=== PATIENT | male | born 1965 | race Caucasian/White ===

== ENCOUNTER 2017-06-21 09:18 | Outpatient (CLI) | payer OTHER ==
[2017-06-21 10:49] LABS: Hematocrit 42.1 % (42.0-52.0); Red Blood Cell (RBC) Count 4.67 mill/uL (4.70-6.10); White Blood Cell (WBC) Count 11.5 thou/uL (4.8-10.8)
[2017-06-21 10:55] LABS: Prothrombin Time 12.9 SEC (12.0-14.7)
[2017-06-21 10:58] LABS: PTT 20.6 SEC (22.9-36.1)
[2017-06-21 11:19] LABS: ALT (SGPT) 49 U/L (8-55); AST (SGOT) 19 U/L (5-34); Alkaline Phosphatase 85 U/L (40-150); Anion Gap 17 mmol/L (10-20); BUN (Urea Nitrogen) 27 mg/dL (8.9-20.6); Bilirubin, Total 0.4 mg/dL (0.2-1.2); Calc. Creatinine Clearance 0 mL/min (70-130); Calcium 9.4 mg/dL (7.8-10.44); Carbon Dioxide 18 mmol/L (22-29); Chloride 107 mmol/L (98-107); Cholesterol 128 mg/dl (< 200 Desired); Estimated GFR-MDRD 34; Globulin 2.5 g/dL (2.4-3.5); LDL Cholesterol, Calculated 70 mg/dL; Protein, Total 6.8 g/dL (6.0-8.3)
--- NOTE | 2017-06-22 06:18 | EKG ---
Test Reason : PREOP Blood Pressure : / mmHG Vent. Rate : 077 BPM Atrial Rate : 077 BPM P-R Int : 186 ms QRS Dur : 108 ms QT Int : 354 ms P-R-T Axes : 044 029 003 degrees QTc Int : 400 ms Normal sinus rhythm Nonspecific T wave abnormality Abnormal ECG When compared with ECG of 22-AUG-2012 12:56, Borderline criteria for Inferior infarct are no longer Present T wave inversion no longer evident in Lateral leads Confirmed by VIRIDIANA CORONEL ([id number]) on 06/22/2017 6:18:02 AM Referred By: JAYESH Confirmed By:VIRIDIANA CORONEL
== END 2017-06-21 09:19 | disposition home or self-care (01) ==
LOC: LABBT 09:18
PROVIDERS: ATTEND Internal Medicine Cardiovascular Disease
DX: Z01.818 Encounter for other preprocedural examination (principal); R94.30 Abnormal result of cardiovascular function study, unspecified
CPT/HCPCS: 80053; 80061; 85027; 85610; 85730; 93005; 93010

== ENCOUNTER → 2017-06-26 | Day surgery (SDC) | payer OTHER ==
[2017-06-21 09:32] VITALS: BMI 34.7
[~2017-06-26] MED LIST: Heparin 10,000 UNITS/1 ML VIAL ONE; Iopamidol 370 76% 100 ML VIAL ONE; Metoprolol Tartrate 5 MG/5 ML VIAL ONE; Nitroglycerin 100MG/250ML BOT 250 ML ONE
--- NOTE | 2017-06-26 08:24 | DIS ---
DATE OF PROCEDURE: 06/26/2017 This is a 51-year-old patient with a history of known coronary artery disease. He is status post an gioplasty and stent placement x4, who presented for evaluation. The patient recently underwent stre ss testing and was found to have an abnormal stress test and was advised to undergo repeat cardiac c atheterization. He was taken to the cardiac catheterization lab today. His other diagnoses include diabetes, hypertension, hypercholesterolemia, bipolar disorder, hypothyr oidism, gastroesophageal reflux disease, chronic kidney disease. DISCHARGE DIAGNOSES: Diabetes, hypertension, hypercholesterolemia, bipolar disorder, hypothyroidism , gastroesophageal reflux disease, chronic kidney disease. PROCEDURES IN THE HOSPITAL: Cardiac catheterization, left ventriculogram, and coronary arteriograph y. Total contrast was approximately 40 mL. DISCHARGE MEDICATIONS: Aspirin 81 mg a day, Lipitor 20 mg daily, Cetirizine HCL 10 mg daily, Bentyl 20 mg 4 times a day, Depakote 1000 mg tablets. He has 500 mg tablets, he takes 1000 mg a day, diva lproex sodium 250 mg tablets once a day. He also takes 1500 mg at night, vitamin D2, Nexium 40 mg a day, Zetia 10 mg a day, felodipine 40 mg a day, hydroxyzine 25 mg q.p.m., insulin 40 units subcu wi th meals, levothyroxine 88 mcg daily, metoprolol 25 mg daily. He also takes NPH insulin as needed 4 0 units b.i.d., Benicar 20 mg daily, Flomax 0.4 mg daily, and testosterone 200 mcg every 2 weeks. FOLLOWUP: His follow up will be with me in the next 4-6 weeks in the office. He will continue his other medications. HOSPITAL COURSE: He underwent a cardiac catheterization today after having an abnormal stress test and was advised to undergo the cardiac catheterization for evaluation of his previously placed stent s and to rule out evidence of progression of coronary disease. He was taken to the lab where he und erwent the procedure today and the findings were as noted in the catheterization report. He did hav e some diffuse luminal irregularities. He had a stent in the distal left anterior descending artery which remained patent without in-stent restenosis. There was a 30% stenosis proximal to the stent, but was not flow limiting. The left circumflex and first obtuse marginal branch had a stent also w hich was patent and again 20-30% proximal stenosis just proximal to the stent. He had a stent in th e distal left circumflex also which showed no evidence of stenosis and a stent which is bifurcating into the third obtuse marginal branch which also showed no evidence of flow limiting disease. Again , luminal irregularities were noted in the left circumflex as well as the left anterior descending a rtery. The left anterior descending artery also had calcifications noted in the proximal and mid ar eas. The right coronary artery had a 40% stenosis in the proximal area, but it did not appear to be flow limiting. Again, luminal irregularities throughout the vessel. Left ventriculogram was perfo rmed with about 6 mL of contrast which showed a normal left ventricular systolic function. Ejection fraction was estimated at 60-65%. The patient did well during the procedure and has remained stabl e. Blood pressure remains stable. He did receive 2 mg of IV Lopressor at the beginning of the proc edure due to tachycardia and some mild hypertension. This all resolved and he did very well to the procedure. I will see him back in the office in 4-6 weeks. Otherwise, he has done well from the pr ocedure. We will repeat a BMP in 2 days to ensure that he has had no injury to the renal function. His creatinine has always been borderline, slightly elevated. His creatinine on 06/21/2017 was 2.0 8. He will be encouraged to drink fluids. If he remains stable, he will be discharged home in the next 2-3 hours. We did a right radial artery approach on this gentleman without difficulties or com plications.
== END ==
LOC: CCL 06:10
PROVIDERS: ATTEND Internal Medicine Cardiovascular Disease
DX: I25.10 Atherosclerotic heart disease of native coronary artery without angina pectoris (principal); E11.22 Type 2 diabetes mellitus with diabetic chronic kidney disease; I12.9 Hypertensive chronic kidney disease with stage 1 through stage 4 chronic kidney disease, or unspecified chronic kidney disease; N18.3 Chronic kidney disease, stage 3 (moderate); E03.9 Hypothyroidism, unspecified; K21.9 Gastro-esophageal reflux disease without esophagitis; I25.2 Old myocardial infarction; F31.9 Bipolar disorder, unspecified; K58.9 Irritable bowel syndrome, unspecified; E29.1 Testicular hypofunction; Z79.82 Long term (current) use of aspirin; Z79.4 Long term (current) use of insulin; Z79.899 Other long term (current) drug therapy; Z98.61 Coronary angioplasty status; Z90.79 Acquired absence of other genital organ(s); Z90.49 Acquired absence of other specified parts of digestive tract; Z98.890 Other specified postprocedural states
CPT/HCPCS: 93458; C1769; J1644

== ENCOUNTER 2017-11-03 07:57 | Outpatient (CLI) | payer OTHER | END 2017-11-03 07:58 | disposition home or self-care (01) | LOC: BICULT 07:57 | PROVIDERS: ATTEND Urology | DX: N28.1 Cyst of kidney, acquired (principal); E11.9 Type 2 diabetes mellitus without complications | CPT/HCPCS: 76770 ==

== ENCOUNTER 2018-03-06 13:15 | Outpatient (CLI) | payer OTHER ==
--- NOTE | 2018-03-06 16:03 | MRI ---
MRI LEFT SHOULDER WITHOUT CONTRAST 03/06/18 HISTORY: Z98.890 - History of repair rotator cuff. COMPARISON: None. FINDINGS: BICEPS TENDON: No normal biceps tendon is seen within each intertubercular groove. There are bicep tendon anchors at the expected location of the subscapularis tendon. The subscapulari s tendon appear to be completely torn and retracted to the glenohumeral joint. There is full thickness tear supraspinatus tendon tear involving the foot plate anteriorly, with the posterior fibers at the level of the tendon 1.2 cm from the foot plate. The tear extends to the infra spinatus tendon. Fibers are retracted to the mid humeral head. Posterior infraspinatus tendon and ter es minor are intact. MUSCLES: There is approximately 50% atrophy of the subscapularis. Supraspinatus muscle is without atrophy. LABRUM: Intact soft tissues. There is synovitis and bodies in the axillary pouch. Moderate subacrominal/subde ltoid bursal effusion. IMPRESSION: 1. Suture anchors are expected location of the subscapularis tendon which is completely turn and retracted to the glenohumeral joint. 2. Full thickness tear supraspinatus tendon tear with fibers retracted to the mid humeral head. The fibers which are retracted are moderately to severely tendinotic. The tear extends into the anter ior most infraspinatus tendon. 3. Greater than 50% atrophy of the subscapularis. 4. Likely prior tenodesis of the biceps tendon. POS: C
== END 2018-03-06 13:16 | disposition home or self-care (01) ==
LOC: SCSMRI 13:15
PROVIDERS: ATTEND Orthopaedic Surgery
DX: M75.102 Unspecified rotator cuff tear or rupture of left shoulder, not specified as traumatic (principal); M62.512 Muscle wasting and atrophy, not elsewhere classified, left shoulder; Z98.890 Other specified postprocedural states

== ENCOUNTER 2019-01-17 14:08 | Emergency (ER) | payer OTHER ==
[2019-01-17 14:31] LABS: #Basophils 0.2 thou/uL (0.0-0.2); #Eosinphils 0.2 thou/uL (0.0-0.7); #Lymphocytes 2.6 thou/uL (1.20-3.40); #Monocytes 1.1 thou/uL (0.11-0.59); #Neutrophils 7.7 thou/uL (1.40-6.50); %Basophils 1.5 % (0.0-1.0); %Lymphocytes 21.8 % (21.0-51.0); %Monocytes 9.5 % (0.0-10.0); %Neutrophils 65.2 % (42.0-75.0); Hemoglobin 15.2 g/dL (14.0-18.0); Mean Corpuscular HGB CONC 31.2 g/dL (32.0-36.0); Mean Corpuscular Hemoglobin 28.3 pg (27.0-31.0); Mean Corpuscular Volume 90.7 fL (78.0-98.0); Mean Platelet Volume 8.9 fL (7.4-10.4); Platelet Count 209 thou/uL (130-400); RBC Distribution Width 15.6 % (11.5-14.5); Red Blood Cell (RBC) Count 5.36 mill/uL (4.70-6.10); White Blood Cell (WBC) Count 11.7 thou/uL (4.8-10.8)
--- NOTE | 2019-01-17 15:01 | RAD ---
Exam: Chest one view portable: HISTORY: Chest pain COMPARISON: 01/26/2011 FINDINGS: Monitor leads overlie the chest. Heart size is within normal limits. The lungs are clear. IMPRESSION: No acute intrathoracic disease.
[2019-01-17 15:27] LABS: ALT (SGPT) 41 U/L (8-55); AST (SGOT) 29 U/L (5-34); Albumin 4.3 g/dL (3.5-5.0); Alkaline Phosphatase 73 U/L (40-150); Anion Gap 21 mmol/L (10-20); BUN (Urea Nitrogen) 20 mg/dL (8.4-25.7); Bilirubin, Total 0.4 mg/dL (0.2-1.2); CK (CPK) 798 U/L (30-200); Calc. Creatinine Clearance 0 mL/min (70-130); Calcium 9.1 mg/dL (7.8-10.44); Carbon Dioxide 18 mmol/L (22-29); Chloride 103 mmol/L (98-107); Estimated GFR-MDRD 28; Globulin 3.5 g/dL (2.4-3.5); Glucose 248 mg/dL (70-105); Potassium 5.7 mmol/L (3.5-5.1); Protein, Total 7.8 g/dL (6.0-8.3); Sodium 136 mmol/L (136-145)
[2019-01-17] MEDS ORDERED: Nitroglycerin 2% Ointment 1 INCH/1 GM Packet ONE (15:28)
[2019-01-17] MEDS ORDERED: Aspirin Chewable 81 MG TAB ONE (15:28)
[2019-01-17 16:23] LABS: Acetaminophen Less than 6.0 mcg/mL (10.0-30.0); Alcohol Less than 10 mg/dL (Less than 10); Salicylate Less than 8.0 mg/dL (15.0-30.0)
== END 2019-01-17 16:45 | disposition short-term general hospital (02) ==
LOC: ERS 14:08
DX: R07.2 Precordial pain (principal); I25.10 Atherosclerotic heart disease of native coronary artery without angina pectoris; I25.2 Old myocardial infarction; E11.9 Type 2 diabetes mellitus without complications; E03.9 Hypothyroidism, unspecified; K21.9 Gastro-esophageal reflux disease without esophagitis; E78.5 Hyperlipidemia, unspecified; I10 Essential (primary) hypertension; E66.9 Obesity, unspecified; N40.0 Benign prostatic hyperplasia without lower urinary tract symptoms; F31.9 Bipolar disorder, unspecified; F41.9 Anxiety disorder, unspecified; Z79.899 Other long term (current) drug therapy; Z79.4 Long term (current) use of insulin
CPT/HCPCS: 71045; 80053; 80307; 82010; 82550; 84484; 85025; 85379; 93005

== ENCOUNTER 2019-02-27 09:23 | Emergency (ER) | payer OTHER ==
[2019-02-27] MEDS ORDERED: Morphine 2 MG/ML SYRINGE ONE (10:08)
[2019-02-27] MEDS ORDERED: Morphine 4 MG/ML VIAL ONE (10:08)
--- NOTE | 2019-02-27 10:26 | RAD ---
Lumbar spine 3 views HISTORY: Low back pain. FINDINGS: There are 5 lumbar type vertebrae. Pedicles are intact. Vertebral body heights and alignmen t are maintained. Osteophytosis of the vertebral bodies and facets. No acute fracture or dislocation. Minimal rightward convex curvature on the frontal view. Calcification over the arterial structures. IMPRESSION: Mild osseous degenerative changes. No acute osseous abnormalities are demonstrated. Atherosclerosis.
[2019-02-27] MEDS ORDERED: Diazepam 5 MG TAB ONE (11:29)
== END 2019-02-27 12:16 | disposition home or self-care (01) ==
LOC: ERS 09:23
DX: S39.012A Strain of muscle, fascia and tendon of lower back, initial encounter (principal); I25.10 Atherosclerotic heart disease of native coronary artery without angina pectoris; I25.2 Old myocardial infarction; E11.9 Type 2 diabetes mellitus without complications; E03.9 Hypothyroidism, unspecified; K21.9 Gastro-esophageal reflux disease without esophagitis; E78.5 Hyperlipidemia, unspecified; I10 Essential (primary) hypertension; F31.9 Bipolar disorder, unspecified; F41.9 Anxiety disorder, unspecified; Z79.899 Other long term (current) drug therapy; Z79.4 Long term (current) use of insulin; X50.9XXA Other and unspecified overexertion or strenuous movements or postures, initial encounter
CPT/HCPCS: 72100; 96372; J2270

== ENCOUNTER 2019-05-02 10:44 | Outpatient (CLI) | payer OTHER ==
--- NOTE | 2019-05-02 11:19 | RAD ---
EXAM: Chest PA and lateral: HISTORY: Cough. Congestion. COMPARISON: 01/17/2019 FINDINGS: Heart: Normal cardiac silhouette Aorta: Unremarkable Pulmonary vessels: Normal Costophrenic angles: Costophrenic angles are clear. Lungs: No masses or consolidation. Chronic interstitial changes are suspected. Pneumothorax: No pneumothorax Osseous structures: No osseous abnormalities IMPRESSION: No acute cardiopulmonary process.
== END 2019-05-02 10:45 | disposition home or self-care (01) ==
LOC: SCSRAD 10:44
PROVIDERS: ATTEND Internal Medicine
DX: R05 Cough (principal)
CPT/HCPCS: 71046

== ENCOUNTER 2019-05-14 13:34 | Outpatient (CLI) | payer OTHER ==
--- NOTE | 2019-05-14 15:11 | MRI ---
MRI Lumbar Spine Noncontrast: HISTORY: Disc degenerative disease of lumbar spine. Lumbar radiculopathy. Patient states low back pain with pa in and numbness down left leg. COMPARISON: None FINDINGS: There is incomplete visualization of cystic renal lesions bilaterally which contain mixed signal inte nsity with increased T1 and T2 as well as areas of decreased T2 weighted signal intensity. Findings are probably related to Bosniak type II renal cystic lesions which are overall similar in size when c ompared to CT examination on 07/15/2016. The remainder of the retroperitoneal structures demonstrate a normal nonenhanced MRI appearance. There is mild right convex curvature of the thoracolumbar spine Conus medullaris is normal in morphology and terminates at the L1 level.. Normal signal intensity is demonstrated throughout the bone marrow. There is very slight height loss along the superior endplate of the T11 vertebral body, likely related to a remote minimal compression deformity. There is generalized narrowing of the central spinal canal secondary to congenitally short pedicles a t multiple levels. T11-12 level: There is a mild disc osteophyte complex which narrows the ventral subarachnoid space an d encroaches on the anterior aspect of the spinal cord. The neural foramina are patent. T12-L1 level: There is a minimal disc bulge without significant narrowing central spinal canal. Neura l foramina are patent. L1-2: There is a mild disc osteophyte complex which results in mild generalized narrowing of the cent ral spinal canal. Right neural foramen is patent. Mild neural foraminal narrowing is present. L2-3: There is loss of intervertebral disc height. There is broad-based disc osteophyte complex prese nt. Findings result in moderate narrowing of the central spinal canal. Mild bilateral neural foraminal narrowing is present. L3-4: There is loss of intervertebral disc height. There is a broad-based disc osteophyte complex wit h mild facet hypertrophic changes. A greater left posterolateral disc osteophyte complex is present which in combination with the facet degenerative changes results in severe left-sided neural foramina l narrowing. There is mild to moderate right-sided neural foraminal narrowing. L4-5: There is loss of intervertebral disc height. Vacuum phenomenon is seen in the intervertebral di scs. There is a mild disc osteophyte complex with facet hypertrophic changes present on the right. Findings result in severe right-sided neural foraminal narrowing. There is mild to moderate left-side d neural foraminal narrowing and mild generalized narrowing of the central spinal canal. There is mild mass effect on the right lateral aspect of the thecal sac due to prominent facet degenerative ch anges at this level. L5-S1: Mild loss of intervertebral disc height is present. A broad-based disc osteophyte complex is p resent, there are mild facet degenerative changes noted. There is mild flattening of the anterior aspect of the thecal sac. Minimal bilateral neural foraminal narrowing is present. IMPRESSION: 1. Generalized narrowing of the central canal due to congenitally short pedicles. Multilevel degenera tive changes are seen throughout the lumbar spine with greatest degrees of neural foraminal narrowing seen on the left at the L3-4 level and on the right at the L4-5 level with degree of neural foraminal narrowing approaching severe in severity. 2. Mild right convex scoliosis thoracolumbar spine. 3. Mixed signal intensity cystic lesions involving each kidney which were also seen on the prior CT a bdomen in 2016 and are likely related to Bosniak type II cystic renal lesions.
== END 2019-05-14 13:35 | disposition home or self-care (01) ==
LOC: SCSMRI 13:34 → TBSIIMAG 13:35
PROVIDERS: ATTEND Neurological Surgery
DX: M51.16 Intervertebral disc disorders with radiculopathy, lumbar region (principal); M47.26 Other spondylosis with radiculopathy, lumbar region; M48.061 Spinal stenosis, lumbar region without neurogenic claudication; M41.9 Scoliosis, unspecified; N28.1 Cyst of kidney, acquired
CPT/HCPCS: 72148

== ENCOUNTER 2024-01-24 12:32 | Inpatient (IN) | payer OTHER ==
[2024-01-24 14:28] LABS: #Basophils 0.07 10x3/uL (0.0-0.2); %Basophils 0.8 % (0.0-1.0); %Eosinophils 5.2 % (0.0-10.0); %Lymphocytes 12.4 % (21.0-51.0); %Monocytes 5.5 % (0.0-10.0); %Neutrophils 73.9 % (42.0-75.0); Hematocrit 37.3 % (42.0-52.0); Mean Corpuscular HGB CONC 29.5 g/dL (32.0-36.0); Mean Corpuscular Hemoglobin 25.8 pg (27.0-31.0); Mean Corpuscular Volume 87.4 fL (78.0-98.0); Mean Platelet Volume 10.2 fL (7.4-10.4); Platelet Count 298 10x3/uL (130-400); RBC Distribution Width 16.1 % (11.5-14.5); Red Blood Cell (RBC) Count 4.27 mill/uL (4.70-6.10)
[2024-01-24 14:33] LABS: Actual Bicarbonate (HCO3v) 15.7 mEq/L (22-28); Base Excess -9.5 mEq/L (-2.0 to +3.0); Chloride (VBG) 104 mmol/L (98-106); Hematocrit-VBG 35 % (42.0-52.0); Hemoglobin (Hb) 11.9 g/dL (13.1-17.2); Potassium (VBG) 3.93 mmol/L (3.70-5.30); Sodium 134 mmol/L (133-146); pH (venous) 7.308 (7.32-7.43)
[2024-01-24] MEDS ORDERED: Acetaminophen 325 MG TAB ONE (14:38)
[2024-01-24 15:20] LABS: Globulin 4.5 g/dL (2.4-3.5)
[2024-01-24 15:24] LABS: ALT (SGPT) 296 U/L (8-55); AST (SGOT) 146 U/L (5-34); Albumin 2.5 g/dL (3.5-5.0); Alkaline Phosphatase 143 U/L (40-110); Anion Gap 17 mmol/L (10-20); BUN (Urea Nitrogen) 31 mg/dL (8.4-25.7); Bilirubin, Total 0.2 mg/dL (0.2-1.2); Calc. Creatinine Clearance 0 mL/min (70-130); Calcium 9.5 mg/dL (7.8-10.44); Carbon Dioxide 14 mmol/L (22-29); Chloride 107 mmol/L (98-107); Estimated GFR 33; Glucose 93 mg/dL (70-105); Potassium 3.8 mmol/L (3.5-5.1); Sodium 134 mmol/L (136-145)
[2024-01-24 15:29] LABS: Troponin I Less than 0.010 ng/mL (< 0.028)
[2024-01-24] MEDS ORDERED: Ketorolac Tromethamine 30 MG (1 mL) VIAL IVP PRN (16:54)
[2024-01-24] MEDS ORDERED: Dicyclomine 20 MG TAB PO PRN (16:55)
[2024-01-24] MEDS ORDERED: Dextrose 5% in Water 1,000 ML IV PRN (17:30)
[2024-01-24] MEDS ORDERED: Glucagon 1 MG/ML KIT IM PRN (17:30)
[2024-01-24] MEDS ORDERED: Dextrose 50% Abboject 50 ML SYRINGE SLOW IVP PRN (17:30)
[2024-01-24] MEDS: Benztropine 1 MG TAB PO SCH (20:35)
[2024-01-24] MEDS: Aripiprazole 15 MG TAB PO SCH (20:35)
[2024-01-24] MEDS: Atorvastatin Calcium 20 MG TAB PO SCH (20:35)
[2024-01-24] MEDS: Tamsulosin HCl 0.4 MG CAP PO SCH (20:36)
[2024-01-24] MEDS: Divalproex Sodium 500 MG ER.TAB PO SCH (20:36)
[2024-01-24] MEDS: hydrOXYzine 25 MG TAB PO SCH (20:36)
[2024-01-24] MEDS: Pantoprazole DR 40 MG TAB PO SCH (20:36)
[2024-01-24] MEDS: busPIRone HCl 10 MG TAB PO SCH (20:36)
[2024-01-24] MEDS: Ezetimibe 10 MG TAB PO SCH (20:36)
[2024-01-24] MEDS: Acetaminophen 325 MG TAB PO PRN (20:37)
[2024-01-24] MEDS: HumaLOG 300 UNITS/3 ML VIAL SC PRN (20:38)
[2024-01-24 23:53] VITALS: BMI 35.6
[2024-01-25] MEDS: Ondansetron PF 4 MG/2 ML Vial IVP PRN (02:39)
[2024-01-25] MEDS: Sodium Chloride 0.9% 1,000 ML IV SCH (02:39)
[2024-01-25 05:06] LABS: #Basophils 0.03 10x3/uL (0.0-0.2); %Basophils 0.3 % (0.0-1.0); %Eosinophils 4.3 % (0.0-10.0); %Lymphocytes 8.6 % (21.0-51.0); %Monocytes 5.9 % (0.0-10.0); %Neutrophils 79.5 % (42.0-75.0); Hematocrit 32.5 % (42.0-52.0); Hemoglobin 9.9 g/dL (14.0-18.0); Mean Corpuscular HGB CONC 30.5 g/dL (32.0-36.0); Mean Corpuscular Hemoglobin 26.2 pg (27.0-31.0); Mean Platelet Volume 10.1 fL (7.4-10.4); Platelet Count 313 10x3/uL (130-400); RBC Distribution Width 16.1 % (11.5-14.5); Red Blood Cell (RBC) Count 3.78 mill/uL (4.70-6.10)
[2024-01-25 05:21] LABS: Anion Gap 14 mmol/L (10-20); BUN (Urea Nitrogen) 25 mg/dL (8.4-25.7); Calc. Creatinine Clearance 55 mL/min (70-130); Calcium 9.3 mg/dL (7.8-10.44); Carbon Dioxide 16 mmol/L (22-29); Chloride 106 mmol/L (98-107); Estimated GFR 35; Glucose 354 mg/dL (70-105); Potassium 4.5 mmol/L (3.5-5.1); Sodium 131 mmol/L (136-145)
[2024-01-25] MEDS: Levothyroxine Sodium 88 MCG TAB PO SCH (05:49)
[2024-01-25 08:39] VITALS: BMI 35.6
[2024-01-25] MEDS: Aspirin 81 mg Enteric Coated Tablet PO SCH (09:05)
[2024-01-25] MEDS: Enoxaparin 40 MG (0.4 mL) SYRINGE SC SCH (09:05)
[2024-01-26 03:58] LABS: #Basophils 0.05 10x3/uL (0.0-0.2); %Basophils 0.6 % (0.0-1.0); %Eosinophils 4.6 % (0.0-10.0); %Lymphocytes 18.2 % (21.0-51.0); %Monocytes 6.1 % (0.0-10.0); %Neutrophils 67.8 % (42.0-75.0); Hematocrit 33.4 % (42.0-52.0); Hemoglobin 10.1 g/dL (14.0-18.0); Mean Corpuscular HGB CONC 30.2 g/dL (32.0-36.0); Mean Corpuscular Hemoglobin 26.5 pg (27.0-31.0); Mean Corpuscular Volume 87.7 fL (78.0-98.0); Mean Platelet Volume 9.9 fL (7.4-10.4); Platelet Count 317 10x3/uL (130-400); RBC Distribution Width 15.9 % (11.5-14.5); Red Blood Cell (RBC) Count 3.81 mill/uL (4.70-6.10)
[2024-01-26 04:30] LABS: Anion Gap 16 mmol/L (10-20); BUN (Urea Nitrogen) 21 mg/dL (8.4-25.7); Calc. Creatinine Clearance 62 mL/min (70-130); Calcium 9.3 mg/dL (7.8-10.44); Carbon Dioxide 16 mmol/L (22-29); Chloride 109 mmol/L (98-107); Estimated GFR 41; Glucose 267 mg/dL (70-105); Potassium 4.7 mmol/L (3.5-5.1); Sodium 136 mmol/L (136-145)
[2024-01-26 09:01] VITALS: TEMP 98.3
[2024-01-26 11:13] VITALS: BP 125/69
== END 2024-01-26 16:12 | disposition home or self-care (01) | DRG 684 ==
LOC: ERS 12:32 → 2NO 16:15 → OBSVTOIN 01-26 08:11
PROVIDERS: ADMIT Internal Medicine; ATTEND Family Medicine
DX: N17.9 Acute kidney failure, unspecified (principal); N18.30 Chronic kidney disease, stage 3 unspecified; E11.22 Type 2 diabetes mellitus with diabetic chronic kidney disease; N40.0 Benign prostatic hyperplasia without lower urinary tract symptoms; E78.5 Hyperlipidemia, unspecified; F31.9 Bipolar disorder, unspecified; F41.9 Anxiety disorder, unspecified; Z79.899 Other long term (current) drug therapy; M25.512 Pain in left shoulder
CPT/HCPCS: 36415; 36416; 70450; 71045; 80048; 80053; 82805; 83880; 84484; 85025; 93005; 96372; 96374; G0378; J1650; J1815; J2405; J7050

== ENCOUNTER 2024-03-05 13:30 | Outpatient (CLI) | payer OTHER | END 2024-03-05 13:31 | disposition home or self-care (01) | LOC: BICRAD 13:30 | PROVIDERS: ATTEND Internal Medicine | DX: M25.512 Pain in left shoulder (principal); M79.622 Pain in left upper arm; R05.9 Cough, unspecified | CPT/HCPCS: 71046 ==